=== PATIENT | female | born 1965 | race African-American/Black ===

== ENCOUNTER 2017-10-18 01:52 | Inpatient (IN) | payer OTHER ==
[~2017-10-18] VITALS: Ht 160 cm; Wt 89.4 kg
[~2017-10-18 01:52] MED LIST: ALEVE220 M1 PO; TURMERIC500 M2 PO
--- NOTE | 2017-10-18 16:02 | Operative Report ---
Operative/Inv Procedure Report Surgery Date: 10/18/17 Name of Procedure: Right shoulder arthroscopy, subacromial decompression, arthroscopic rotator cuff repair, extensive debridement, subpectoral biceps tenodesis Pre-Operative Diagnosis: Right shoulder rotator cuff tear Post-Operative Diagnosis: Right shoulder rotator cuff tear Estimated Blood Loss: scant Surgeon/Geospatial Engineer: Yumiko CHANCE,LISA Land Anesthesia: general endotracheal tube, block Complications: None Condition: Stable to PACU Operative Indication: This is a 52-year-old female with a history of polio. She uses crutches bilaterally. She has had long-standing right shoulder pain. MRI showed a rotator cuff tear. Risks and benefits of the procedure were discussed with the patient at length. Risks include but are not limited to nerve damage, muscle damage, infection, blood loss, blood clots, pulmonary embolus, and even . The patient agreed to the above risks and elected to proceed with surgery. Operative/Procedure Note Note: The patient was taken to the operating room and placed in the lateral decubitus position with the operative side up after anesthesia was induced. The upper extremity was prepped and draped in the normal sterile fashion. A timeout was performed prior to incision. The site marking was visualized prior to incision. IV antibiotics were given prior to incision. After the upper extremity was prepped and draped a spinal needle was used to insufflate the shoulder joint with saline. An 11 blade was used to incise the skin for the posterior portal placement. The cannula was then placed. The camera was inserted. An anterior portal was established just proximal and lateral to the coracoid with a spinal needle and an 11 blade. The diagnostic arthroscopy was then performed which showed the above findings. Shaver was used to debride the anterior and posterior labrum. An RF wand was used to perform a biceps tenotomy. The biceps stump was then debrided. Shaver was used to debride the subscapularis tendon as well as to prepare the rotator cuff footprint from within the joint. Next the subacromial space was entered through the posterior portal. A lateral portal was established with a spinal needle and an 11 blade. A blunt probe was inserted through the lateral portal. Next the shaver was inserted and a subacromial bursectomy was performed. Any bleeding vessels were identified and cauterized. The shaver was used to debride any bursal tissue on the undersurface of the acromion and surrounding the humeral head. The coracoacromial ligament was taken down with a wand. Care was taken to protect the rotator cuff tissue and only take bursal tissue. A wand was then used to further take down the soft tissue on the undersurface of the acromion. A bur was then inserted and the acromioplasty was then begun starting at the anterolateral edge of the acromion. This was extended down to the level of the acromioclavicular joint. This was then tapered further posteriorly. An 8 mm PassPort cannula was placed through the lateral portal site. A 6 mm PassPort cannula was placed through the anterior portal. An accessory portal was made just off of the lateral border the acromion with a spinal needle and an 11 blade. An 8 mm PassPort cannula was placed through this. The bur was used to prepare the rotator cuff footprint back to a healthy bed of bleeding bone for later rotator cuff repair. Any bursal adhesions superior to the rotator cuff were taken kip with a shaver. A tap was used and a 5.5 mm helicoil anchor was placed just lateral to the articular surface in the rotator cuff footprint. An expressew needle was then used to shuttle the sutures from front to back. The medial row was tied down with a locking knot and several half hitches. The sutures were then crisscrossed over the top and fixed with 2 lateral row anchors. An anchor was placed posterior to the bicipital groove. A second anchor was placed further posterior. This afforded excellent compression of the rotator cuff. The excess suture was then cut. A 1/8 inch Hemovac drain was placed through the posterior portal. An incision was then made in the axillary fold. Blunt dissection was performed and the pectoralis major tendon was identified. A Hohmann retractor was inserted deep to this to expose the bicipital groove. The biceps tendon was then delivered from the wound and whipstitched starting at the musculotendinous junction. It extended proximally. The excess tendon was cut. The bicipital groove was then cleared off of any soft tissue. A guidewire was then drilled from an anterior to posterior direction in the groove. A 7 mm reamer was then used over the wire to drill the anterior cortex. A 7 x 10 mm Arthrex peek tenodesis screw was then inserted after the biceps tendon was delivered into the drill hole. The screw was then tightened down flush with the anterior humeral cortex. The sutures were then tied over the top. The excess suture was cut. The wound was copiously irrigated. The skin was closed with 2-0 vicryl suture in a simple interrupted fashion and a running subcuticular 4-0 Monocryl stitch. Dermabond was applied. All instruments were removed and the shoulder was copiously irrigated. The portal sites were closed with 3-0 nylon suture in a simple interrupted fashion. A dry sterile dressing was placed. A sling was applied. The patient was transferred to PACU in stable condition. Findings: Diffuse intrasubstance tearing of the biceps tendon. Degenerative tearing of the anterior and posterior labrum. Intrasubstance tearing of the subscapularis, insertion intact. Full-thickness tear of the supraspinatus tendon with retraction. Infraspinatus with partial undersurface tearing. Os acromiale present. Glenohumeral articular cartilage intact.
[2017-10-18 17:00] VITALS: BP 122/88
--- NOTE | 2017-10-18 17:57 | PN- Orthopedic ---
Subjective Subjective: Post op check Awake, alert Pain is well controlled at this time - 06/06 per patient Denies nausea Tolerating diet Objective Vital Signs and I&Os Vital Signs Date Time Temp Pulse Resp B/P B/P Pulse O2 O2 Flow FiO2 Mean Ox Delivery Rate 10/18 1700 97.5 85 16 122/88 98 Room Air Physical Exam: vss, afebrile General: alert and oriented times three Ext: RUE in sling, R hand movement/strength 4/5, decreased sensate due to block but present Wd; dressed, dry ASHER: scant serosang drainage Assessment/Plan Assessment/Plan 52yo female s/p Right shoulder arthroscopy, subacromial decompression, arthroscopic rotator cuff repair, extensive debridement, subpectoral biceps tenodesis, pt suffers from polio and uses bilateral crutches to ambulate Pain management - po with IV breakthrough needed overnight regular diet hep sc for dvt ppx RUE in sling at all times dc planning Core Measures Venous Thromboembolism VTE Risk Factors Surgery No Mechanical VTE Prophylaxis d/t N/A MechProphylax Ordered No VTE Pharm Prophylaxis d/t NA PharmProphylax ordered
[2017-10-18 19:08] VITALS: BP 102/64
[2017-10-18 21:39] VITALS: BP 106/70
[2017-10-18 22:57] VITALS: BP 104/66
[2017-10-19 02:56] VITALS: BP 102/62
[2017-10-19 05:37] VITALS: BP 114/78
--- NOTE | 2017-10-19 08:05 | Patient Discharge Instructions ---
Discharge Instructions General Discharge Information You were seen/treated for: Rotator cuff tear, right shoulder You had these procedures: Right shoulder arthroscopy with RTC repair Watch for these problems: Increasing pain despite the use of pain medications. Increasig redness, warmth, swelling to shoulder. Drainage of any type from incision Loss of motor and sensation to right arm/hand Fever greater than 101.5 Do not soak the wound: Yes Other wound care: Keep wound clean and dry Special Instructions: Sling at all times, follow up with Dr. Calderon in 2 weeks Diet Continue normal diet: Yes Recommended Diet: Regular Acute Coronary Syndrome Inclusion Criteria At DC or during hospital stay patient has or had the following: ACS DIAGNOSIS No Discharge Core Measures Meds if any: Prescribed or Continued at Discharge Meds if any: NOT Prescribed or Continued at Discharge Congestive Heart Failure Inclusion Criteria At DC or during hospital stay patient has or had the following: CHF DIAGNOSIS No Discharge Core Measures Meds if any: Prescribed or Continued at Discharge Meds if any: NOT Prescribed or Continued at Discharge Cerebrovascular accident Inclusion Criteria At DC or during hospital stay patient has or had the following: CVA/TIA Diagnosis No Discharge Core Measures Meds if any: Prescribed or Continued at Discharge Meds if any: NOT Prescribed or Continued at Discharge Venous thromboembolism Inclusion Criteria VTE Diagnosis No VTE Type NONE VTE Confirmed by (Test) NONE Discharge Core Measures - Per Current guidelines, there needs to be overlap - treatment for the first 5 days of Warfarin therapy. - If discharged on Warfarin prior to 5 days of - overlap therapy, the patient will need to be - assessed for post discharge needs including - *Post discharge parental anticoagulation - *Warfarin and/or parental anticoagulation education - *Follow up date to check INR post discharge At least 5 days overlap therapy as Inpatient No Meds if any: Prescribed or Continued at Discharge Note: Overlap Therapy is Warfarin and Anticoagulant Meds if any: NOT Prescribed or Continued at Discharge
[2017-10-19] MEDS ORDERED: PERCOCET 5-3251 EACH PO (08:07)
--- NOTE | 2017-10-19 08:13 | PN- Orthopedic ---
Subjective Subjective: POD1 right shoulder arthroscopy. no complaints overnight still intermittent right arm sensory changes from the block shoulder immobilizer in place Objective Vital Signs and I&Os Vital Signs Date Time Temp Pulse Resp B/P B/P Pulse O2 O2 Flow FiO2 Mean Ox Delivery Rate 10/19 0537 97.6 88 20 114/78 99 Room Air 10/19 0256 97.6 69 20 102/62 99 Room Air 10/18 2257 97.7 86 18 104/66 98 Room Air 10/18 2139 97.6 80 18 106/70 100 Room Air 10/18 2012 Room Air 10/18 1908 98.0 86 18 102/64 100 Room Air 10/18 1700 97.5 85 16 122/88 98 Room Air Intake & Output 10/19 1600 10/19 0810/19 0000 10/18 1600 10/18 0800 10/18 0000 Intake Total 200 250 Output Total 315 1200 Balance -115 -950 Intake, Oral 200 250 Output, 15 Drainage Output, Urine 300 1200 Patient 197 lb 198 lb Weight Physical Exam: patient is sitting upright in bed, eating without complaints right shoulder - big bulky dressing with ASHER drain, scant drainage drain pulled still sensory and motor deficets from block -radial nerve radil pulse intact Assessment/Plan Assessment/Plan POD1 right shoulder DSA, RTC drain pulled, PT this am patient has history of Polio and uses canes for ambulation she will need rehab until back to baseline. VSS afebrile, stable to D/C today Core Measures Venous Thromboembolism VTE Risk Factors Surgery No Mechanical VTE Prophylaxis d/t N/A MechProphylax Ordered No VTE Pharm Prophylaxis d/t NA PharmProphylax ordered
--- NOTE | 2017-10-19 08:18 | Surgical Discharge Summary ---
Visit Information Visit Dates Admission Date: 10/18/17 History of Present Illness Chief Complaint: Right shoulder pain Medical History Blood Transfusion Hx: No Neurological: POLIO EENT: NONE Cardiovascular: NONE Respiratory: NONE Gastrointestinal: DIVERTICULOSIS Hepatic: NONE Renal: NONE Musculoskeletal: osteoarthritis, POLIO Psychiatric: NONE Endocrine: NONE Blood Disorders: NONE Cancer(s): NONE RETIREMENT SPECIALIST/Reproductive: NONE History of MRSA: No History of VRE: No History of CDIFF: No Isolation History: Standard Surgical History Pertinent Surgical History: BREAST REDUCTION BILAT LEG SURGERY X 2 COLONOSCOPY Psychosocial History Where Do You Live? Home Who Do You Live With? Spouse Services at Home: None What is Your Primary Language? Palestinian Review of Systems: See H&P Hospital Course Course Attending Physician: Greg Calderon MD Primary Care Physician: Mariluz Torres [facility] Course: Lyn was admitted to the hospital on 10/18/2017 following a right shoulder arthroscopy with RTC repair. She tolerated the procedure well and was transferred to a general surgical floor. Her diet was advanced and tolerated. She voided spontaneously. Her vital signs remained stable and within normal limits. Due to her underlying physical impairments related to her history of Polio, she was unable to safely mobilize independently. At a baseline, she requires assistive devices, crutches or walker, to assist in ambulating. Due to her upper extremitiy surgery associate limitations, she is unable to utilize those devices and therefore will require a stay in a rehabilitation facility. She was cleared from a surgical standpoint for dc to str on pod 1. Allergies: Coded Allergies: No Known Allergies (10/16/17) Disposition Summary Disposition Principal Diagnosis: Right shoulder RTC tear Additional Diagnosis: None Discharge Disposition: SNF Discharge Instructions General Discharge Information Code Status: Full Code Patient's Diet: Regular, advance as tolerated Patient's Activity: As tolerated, sling at all times Follow-Up Instructions/Appts: Follow up with Dr. Calderon in 2 weeks from date of surgery Medications at Discharge Discharge Medications: Continue taking these medications: Naproxen Sodium (Aleve) 220 MG CAPSULE 1 Capsule ORAL DAILY Turmeric Root Extract (Turmeric) (Unknown Strength) CAPSULE Unknown Dose ORAL DAILY Start taking the following new medications: Oxycodone HCl/Acetaminophen (Percocet 5-325 MG Tablet) 5 MG-325 MG TABLET 1-2 Tablet ORAL EVERY 4-6 HOURS as needed for PAIN Qty = 36 No Refills
--- NOTE | 2017-10-19 08:20 | Surg Short-stay <48hrs Dis Sum ---
Visit Information Visit Dates Admission Date: 10/18/17 Discharge Date: 10/19/2017 Surgical Short Stay DC Summary Admission Diagnosis: right rotater cuff tear and impingement Final Diagnosis: same Procedure(s): right shoulder DSA, RTC repair Summary/Significant Findings: 52 y/o female underwent right shoulder DSA for RTC tear and had anuneventful postop course.She has a history of Polio and uses canes for ambulation assistance. She has been seen by PT and is medically cleared for D/C for continuation of rehab until return to baseline functioning. She will need dressing change POD2 and will need to continue wearing shoulder immobilizer. Condition at Discharge: stable Discharge Disposition: SNF Discharge instructions provided to patient/family: Yes Post discharge follow-up plan: follow-up with Dr. Calderon in 2 weeks Copies to: Yumiko CAHNCE,Gerg
[2017-10-19 09:23] VITALS: BP 114/78
[2017-10-19] MEDS ORDERED: ASPIRIN EC81 M1 PO (10:19)
[2017-10-19 11:47] VITALS: BP 120/74
[2017-10-19 14:02] VITALS: BP 122/64
[2017-10-19 16:00] VITALS: BP 124/70
== END 2017-10-19 18:05 | DRG 502 ==
LOC: 2NB 01:52 → SDA 01:52 → MERGE 07:00 → ENRESERV 15:49 → CANRESERV 15:49 → EDBEDREQ 15:55 → ENRESERV 16:00 → ENTRNSPT 16:26 → EDTRNSPTSTS 16:46 → 2NB 16:50 → CMPTRNSPT 16:59 → ENPENDDIS 10-19 08:40 → 2NB 10-19 18:05
PROC: 0LB14ZZ Excision of Right Shoulder Tendon, Percutaneous Endoscopic Approach (ICD-10-PCS; principal; 2017-10-18)
PROC: 0RHJ44Z Insertion of Internal Fixation Device into Right Shoulder Joint, Percutaneous Endoscopic Approach (ICD-10-PCS; 2017-10-18)
PROC: 0LX Tendons, Transfer (ICD-10-PCS; 2017-10-18)
PROC: 0LN14ZZ Release Right Shoulder Tendon, Percutaneous Endoscopic Approach (ICD-10-PCS; 2017-10-18)
PROC: 0RNJ4ZZ Release Right Shoulder Joint, Percutaneous Endoscopic Approach (ICD-10-PCS; 2017-10-18)
DX: M75.121 Complete rotator cuff tear or rupture of right shoulder, not specified as traumatic (principal); K57.90 Diverticulosis of intestine, part unspecified, without perforation or abscess without bleeding; M19.90 Unspecified osteoarthritis, unspecified site; R26.89 Other abnormalities of gait and mobility; Z86.12 Personal history of poliomyelitis
CPT/HCPCS: 2NBP; 97161-GP; 97530-GO; J0171; J0690; J1644; J2405